=== PATIENT | female | born 1980 | race Asian ===

== ENCOUNTER 2018-08-17 20:49 | Emergency (ER) | payer OTHER ==
[~2018-08-17] VITALS: Ht 152.4 cm; Wt 59.5 kg
[2018-08-17 21:11] VITALS: Ht 152.4 cm; Wt 59.5 kg
[2018-08-17 22:46] LABS: PLATELET COUNT 149 x10^3mcL (130-400); RED CELL DISTRIBUTION WIDTH 14.1 % (11.5-14.5)
[2018-08-17 23:01] LABS: CALCIUM 7.6 mg/dL (8.5-10.1); CARBON DIOXIDE 21.2 mmol/L (21-32); CHLORIDE SERUM 101 mmol/L (98-107); GFR1 > 60 mL/min; GLUCOSE SERUM 98 mg/dL (74-106); POTASSIUM SERUM 3.5 mmol/L (3.5-5.1); SODIUM SERUM 134 mmol/L (136-145)
[2018-08-17 23:06] LABS: ALKALINE PHOSPHATASE 62 U/L (46-116); ALT/SGPT 24 U/L (14-59); AST/SGOT 27 U/L (15-37); BILIRUBIN TOTAL 0.13 mg/dL (0.20-1.00); TOTAL PROTEIN, SERUM 6.4 g/dL (6.4-8.2)
[2018-08-17 23:18] LABS: BAND NEUTROPHIL 30 % (0-10); MONOCYTE 8 % (0-7); SEGMENTED NEUTROPHILS 30 % (37-75)
[2018-08-17 23:19] LABS: rbc morphology (normal/abnorm) ABNORMAL (NORMAL)
[2018-08-17 23:47] LABS: UA SPECIFIC GRAVITY 1.025 (1.005-1.035); microscopic required? YES; urine erythrocyte NEGATIVE (NEGATIVE)
[2018-08-18 01:02] VITALS: BP 105/66
== END 2018-08-18 01:02 | disposition home or self-care (01) ==
LOC: ED 20:49
PROVIDERS: Emergency Medicine
DX: N76.0 Acute vaginitis (principal)
CPT/HCPCS: 36415; 87491; 87591; 87804; J7030

== ENCOUNTER 2018-08-19 08:27 | Emergency (ER) | payer OTHER ==
[~2018-08-19] VITALS: Ht 157.5 cm; Wt 58.6 kg
[2018-08-19 08:39] VITALS: Ht 157.5 cm; Wt 58.6 kg
[2018-08-19 10:33] VITALS: BP 120/83
== END 2018-08-19 10:33 | disposition home or self-care (01) ==
LOC: ED 08:27
DX: L25.8 Unspecified contact dermatitis due to other agents (principal); T37.3X5A Adverse effect of other antiprotozoal drugs, initial encounter; N76.0 Acute vaginitis; Z88.1 Allergy status to other antibiotic agents; Y92.89 Other specified places as the place of occurrence of the external cause